=== PATIENT | female | born 1995 | race Caucasian/White ===

== ENCOUNTER 2021-01-22 23:26 | Emergency (ER) | payer OTHER ==
[~2021-01-22] VITALS: Ht 157.5 cm; Wt 54.4 kg
[2021-01-22 23:30] VITALS: BP_SYST 130
--- NOTE | 2021-01-22 23:46 | NUR ---
Patient to ER bed 6 to gown for evaluation. Side rails up. Report given to KRYSTAL Alexander.
--- NOTE | 2021-01-23 00:10 | NUR ---
AWAKE, ALERT. PT STATES THAT SHE HAS BEEN EXPERIENCING PALPITATIONS THESE LAST 2 DAYS, HAD SOME LIGHT HEADEDNESS, SOB X 5 MINUTES, DENIES CHEST PAIN, DENIES NAUSEA/VOMITING. PT HAS HISTORY OF ANXIETY AND ULCERATIVE COLITIS.
--- NOTE | 2021-01-23 00:16 | NUR ---
ER at bedside examining patient.
[2021-01-23 00:38] LABS: BASOPHILS % (AUTO) 0.7 % (0.0-2.0); EOSINOPHILS % (AUTO) 0.2 % (0.0-4.0); HEMATOCRIT 37.1 % (36-48); HEMOGLOBIN 12.6 g/dL (12.0-16.0); LYMPHOCYTES # (AUTO) 1.5 K/uL (1.0-5.5); MEAN CORPUSCULAR HEMOGLOBIN 27 pg (27-31); MEAN CORPUSCULAR HGB CONC 34 % (32-36); MEAN CORPUSCULAR VOLUME 79 fL (79.0-98.0); MONOCYTES # (AUTO) 0.4 K/uL (0.0-1.0); MONOCYTES % (AUTO) 7.3 % (1.7-9.3); NEUTROPHILS # (AUTO) 4.1 K/uL (1.8-7.7); NEUTROPHILS % (AUTO) 66.8 % (40.0-70.0); PLATELET COUNT (AUTO) 374 K/uL (130-430); RED BLOOD CELL COUNT(AUTO) 4.68 MIL/uL (4.2-6.2); RED CELL DISTRIBUTION WIDTH 14.7 % (9.0-15.0); WHITE BLOOD COUNT (AUTO) 6.1 K/uL (4.8-10.8)
[2021-01-23 00:57] LABS: CREATININE 0.63 mg/dL (0.55-1.30); POTASSIUM 3.6 mmol/L (3.5-5.1)
[2021-01-23 01:13] LABS: THYROID STIMULATING HORMONE 3.28 uIu/mL (0.36-3.74); TOTAL BILIRUBIN 0.1 mg/dL (0.0-1.0)
[2021-01-23 02:20] VITALS: BP_SYST 130
--- NOTE | 2021-01-23 02:20 | NUR ---
Patient given written and verbal discharge instructions and verbalizes understanding. ER MD discussed with patient the results and treatment provided. Patient in stable condition. ID arm band removed. No Rx given. Patient educated on pain management and to follow up with PMD. Pain Scale 0/10. Opportunity for questions provided and answered.
== END 2021-01-23 02:20 | disposition home or self-care (01) ==
LOC: SED 23:26
DX: R00.2 Palpitations (principal)
CPT/HCPCS: 36415; 80053; 83735; 84443; 84484; 84702; 85025; 93005; 99284